=== PATIENT | male | born 1975 | race American Indian/Alaskan Native ===

== ENCOUNTER 2021-01-01 01:11 | Emergency (ER) | payer SELFPAY ==
[2021-01-01] MEDS ORDERED: ACETAMINOPHEN 500 MG TAB PO ONE ×2 (02:04→03:17)
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
[2021-01-01 02:22] VITALS: BP 146/116
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
[2021-01-01] MEDS ORDERED: IBUPROFEN 600 MG TAB PO ONE (03:53)
[2021-01-01] MEDS ORDERED: LIDOCAINE (1%) 10 MG/1 ML VIAL 20 ML MDV INFILTRATI ONE (03:53)
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
--- NOTE | 2021-01-01 05:16 | XRay Report ---
CHEST 1 VIEW 01/01/2021 4:04 AM INDICATION / CLINICAL INFORMATION: cough. COMPARISON: None available. FINDINGS: SUPPORT DEVICES: None. HEART / MEDIASTINUM: No significant abnormality. LUNGS / PLEURA: No significant pulmonary or pleural abnormality. No pneumothorax. ADDITIONAL FINDINGS: No significant additional findings. IMPRESSION: 1. No acute findings. Signer Name: Sandro Christine MD Signed: 01/01/2021 5:11 AM Workstation Name: [id number]
== END 2021-01-01 06:19 | disposition home or self-care (01) ==
LOC: ED 01:11
DX: S01.81XA Laceration without foreign body of other part of head, initial encounter (principal); S10.93XA Contusion of unspecified part of neck, initial encounter; Z79.899 Other long term (current) drug therapy; Y04.8XXA Assault by other bodily force, initial encounter; Y93.89 Activity, other specified; Y92.89 Other specified places as the place of occurrence of the external cause; Y99.8 Other external cause status
CPT/HCPCS: 70450; 70486; 71045; 72125; 99283; 99284